=== PATIENT | male | born 1940 ===

== ENCOUNTER 2019-08-04 07:56 | Day surgery (SDC) | payer MEDICARE ==
[~2019-08-04 07:56] MED LIST: Acetaminophen TAB* 325 MG PO PRN; Buffered Lidocaine 1% SYRIN* 1 ML/SYRINGE INTRADERM ONE
[2019-08-04] MEDS ORDERED: Midazolam* 1 MG/ML 2 ML VIAL (2 MG) ONE ×2 (09:26→09:50)
[2019-08-04] MEDS ORDERED: Trypan Blue 0.06% SOL* 0.5 ML BTL ONE (09:38)
[2019-08-04] MEDS ORDERED: fentaNYL* 50 MCG/ML 2 ML VIAL (100 MCG VIAL) ONE (09:52)
[2019-08-04 10:28] VITALS: BP 135/61
[2019-08-04] MEDS ORDERED: Phenylephrine OPHTH SOL 2.5%* 2 ML ONE (11:20)
[2019-08-04] MEDS ORDERED: Lidocaine 1% MPF ** 5 ML VIAL ONE (11:20)
[2019-08-04] MEDS ORDERED: Neomycin/Polymy/Dex OPHTH.OIN* 3.5 GM ONE (11:20)
[2019-08-04] MEDS ORDERED: Tropicamide 1% OPTH.SOL* BTL ONE (11:20)
[2019-08-04] MEDS ORDERED: Ketorolac 0.5% OPHTH (NF) 0.5 % 5 ML BTL ONE (11:20)
[2019-08-04] MEDS ORDERED: Tetracaine 0.5% OPTH.SOL 4 ML* 1 DROP BTL ONE (11:20)
[2019-08-04] MEDS ORDERED: Phenylephr/Ketorolac 1%/0.3% OPH DROP BTL ONE (11:41)
--- NOTE | 2019-08-04 12:48 | OP ---
DATE OF OPERATION: 08/04/19 - [facility] DATE OF : 36 SURGEON: Scott Duarte MD. ANESTHESIA: Topical with intravenous sedation. PRE-OP DIAGNOSIS: Dense cataract, right eye with small pupil. POST-OP DIAGNOSIS: Dense cataract, right eye with small pupil. OPERATIVE PROCEDURE: Phacoemulsification and cataract extraction with posterior chamber intraocular lens implant right eye, Malyugin ring right eye. COMPLICATIONS: None. BLOOD LOSS: None. DESCRIPTION OF PROCEDURE: The patient was brought to the operating room and received intravenous sedation. A drop of tetracaine was placed in his right eye. The patient was prepped and draped in the usual sterile fashion for ophthalmic surgery and attention was directed to the right eye where a speculum was placed. It was noted that, despite appropriate preoperative eye drops, his pupil failed to dilate beyond 2.5 mm. A paracentesis was created at the 11 o'clock position and 0.1 cc of 1% preservative-free lidocaine was injected via anterior chamber followed by DisCoVisc. The eye was digitally stabilized while a 2.75 mm keratome was used to create a triplanar clear corneal incision at the 9 o'clock position. A Malyugin ring was introduced into the anterior chamber and used to capture the iris at 4 points. Omidria was added to the irrigating solution. A continuous curvilinear capsulorrhexis was created with a cystotome and Utrata forceps. BSS on a cannula was used to hydrodissect the lens from the capsule. Phacoemulsification was performed in a [id number]-[id number]-[id number] technique to create 4 fragments, which were removed. Residual cortical material was removed with irrigation and aspiration. DisCoVisc was used to inflate the capsular bag. An AU00T0 21.5-diopter lens was inserted into the capsular bag. DisCoVisc was removed from posterior to the lens. Supplemental DisCoVisc was placed anterior to the lens. The Malyugin ring was atraumatically removed from the eye. Residual DisCoVisc was removed using irrigation and aspiration. BSS on a cannula was used to hydrate the corneal wound. At the end of the case, the pupil was slightly irregular and measured approximately 3 mm. The lens was centered and stable. The eye pressure appeared normal and the wound was watertight. The speculum was removed. Topical Maxitrol ointment was placed in the surface of the eye. Eye was closed , patched, and shielded and the patient was sent to recovery room in stable condition with postop instructions and followup appointment given. [id number]/[facility] #: [id number] AMOS
== END 2019-08-04 10:22 | disposition home or self-care (01) ==
LOC: OREAST 07:56
PROVIDERS: ATTEND Ophthalmology
DX: H25.041 Posterior subcapsular polar age-related cataract, right eye (principal); H21.561 Pupillary abnormality, right eye; I10 Essential (primary) hypertension; F17.200 Nicotine dependence, unspecified, uncomplicated; Z86.73 Personal history of transient ischemic attack (TIA), and cerebral infarction without residual deficits
CPT/HCPCS: A9270-GY; J1097; J2250; J3010; V2632

== ENCOUNTER 2019-09-22 08:03 | Day surgery (SDC) | payer MEDICARE ==
[~2019-09-22 08:03] MED LIST changes: +Propofol* 10 MG/ML 20 ML BTL ONE
[2019-09-22] MEDS ORDERED: Midazolam* 1 MG/ML 2 ML VIAL (2 MG) ONE ×2 (08:53→09:37)
[2019-09-22] MEDS ORDERED: fentaNYL* 50 MCG/ML 2 ML VIAL (100 MCG VIAL) ONE (08:53)
[2019-09-22] MEDS ORDERED: Labetalol IV* 5 MG/ML 20 ML VIAL ONE (09:42)
[2019-09-22] MEDS ORDERED: Tetracaine 0.5% OPTH.SOL 4 ML* 1 DROP BTL ONE (09:43)
[2019-09-22] MEDS ORDERED: Cyclopentolate 1% OPTH.SOL* 2 ML BTL ONE (09:43)
[2019-09-22] MEDS ORDERED: Tropicamide 1% OPTH.SOL* BTL ONE (09:43)
[2019-09-22] MEDS ORDERED: Lidocaine 1% MPF ** 5 ML VIAL ONE (09:43)
[2019-09-22] MEDS ORDERED: Neomycin/Polymy/Dex OPHTH.OIN* 3.5 GM ONE (09:43)
[2019-09-22] MEDS ORDERED: Ketorolac 0.5% OPHTH (NF) 0.5 % 5 ML BTL ONE (09:43)
[2019-09-22] MEDS ORDERED: Phenylephrine OPHTH SOL 2.5%* 2 ML ONE (09:43)
[2019-09-22] MEDS ORDERED: Phenylephr/Ketorolac 1%/0.3% OPH DROP BTL ONE ×2 (11:05→13:39)
[2019-09-22 11:41] VITALS: BP 125/63
--- NOTE | 2019-09-22 14:49 | OP ---
DATE OF OPERATION: 09/22/19 - [facility] DATE OF : 36 SURGEON: Scott Duarte MD. MILIEU MANAGER: None. ANESTHESIA: Topical with intravenous sedation. PRE-OP DIAGNOSIS: Cataract with small pupil, left eye. POST-OP DIAGNOSIS: Cataract with small pupil, left eye. OPERATIVE PROCEDURE: Phacoemulsification and cataract extraction with posterior chamber intraocular lens implant left eye, Malyugin ring. COMPLICATIONS: None. BLOOD LOSS: None. DESCRIPTION OF PROCEDURE: The patient was brought to the operating room after receiving appropriate preoperative dilating drops. He was prepped and draped in the usual sterile fashion for ophthalmic surgery and attention was directed to the left eye where a speculum was placed. It was noted his pupil had failed to dilate and measured approximately 2 mm in diameter. A paracentesis was created at the 5 o'clock position and 0.1 cc of 1% preservative-free lidocaine was injected via anterior chamber followed by DisCoVisc. A 2.75 mm keratome was used to create a triplanar clear corneal incision at the 3 o'clock position while the eye was digitally stabilized. A Malyugin ring was atraumatically inserted to capture the pupil border. A continuous curvilinear capsulorrhexis was created using a cystotome and Utrata forceps measuring approximately 4 mm in diameter. BSS on a cannula was used to hydrodissect the lens from the capsule. Omidria was added to the irrigating solution. Phacoemulsification was performed in a [id number] technique to create 4 fragments, which were removed. It was notable that the lens was very dense and the ultrasound power needed to be increased slightly. Residual cortical material was removed with irrigation and aspiration. The capsular bag was polished aggressively. A small amount of plaque remained supratemporally. The capsular bag was inflated with DisCoVisc. An AU00T0 22.5 diopter lens was inserted into the capsular bag. DisCoVisc was removed from posterior to the lens. Supplemental DisCoVisc was added anterior to the lens. The Malyugin ring was atraumatically removed. The remainder of the DisCoVisc was removed from the eye using irrigation and aspiration. BSS on a cannula was used to hydrate the corneal stroma and seal the wound. At the end of the case, the pupil was round measuring approximately 3.5 mm. There were a few transillumination defects noted in the pupil. The lens was centered and stable. The eye pressure appeared normal and the wound was watertight. The speculum was removed. Topical Maxitrol ointment was placed in the surface of the eye. Eye was closed, patched, and shielded and the patient was sent to recovery room in stable condition with postop instructions and followup appointment given. [id number]/[facility] #: [id number]
== END 2019-09-22 10:10 | disposition home or self-care (01) ==
LOC: OREAST 08:03
PROVIDERS: ATTEND Ophthalmology
DX: H25.12 Age-related nuclear cataract, left eye (principal); H21.562 Pupillary abnormality, left eye; I10 Essential (primary) hypertension; Z86.73 Personal history of transient ischemic attack (TIA), and cerebral infarction without residual deficits
CPT/HCPCS: A9270-GY; J1097; J2250; J2704; J3010; V2632